=== PATIENT | female | born 1995 | race Caucasian/White ===

== ENCOUNTER 2017-02-07 11:45 | Emergency (ER) | payer OTHER ==
[2017-02-07 11:56] VITALS: RESP 16; TEMP 98.6
--- NOTE | 2017-02-07 13:47 | EDPHY ---
H & P Time Seen by Provider: 02/07/17 13:04 HPI/ROS: CHIEF COMPLAINT: Sinus pain, congestion, cough HISTORY OF PRESENT ILLNESS: 21-year-old female presents emergency department with nasal congestion, sinus pain over the last 1 week. The patient has a history of kidney stones. She has not been on antibiotics for 1 week. Denies any reported trauma. Has felt subjective fevers and chills. Only occasional cough. Her boyfriend is sick with similar symptoms. Denies chest pain or difficulty breathing. Denies abdominal pain or vomiting. No back pain. She has some right posterior neck pain which is chronic for her. REVIEW OF SYSTEMS: Constitutional: No fever, no chills. Eyes: No double or blurry vision. ENT: Nasal congestion, facial pain. No sore throat. Respiratory: Occasional cough, no shortness of breath. Cardiac: No chest pain. Gastrointestinal: No abdominal pain, vomiting or diarrhea. Genitourinary: No dysuria. Musculoskeletal: No neck or back pain. Skin: No rashes. Neurological: headache. Past Medical/Surgical History: Sinusitis Social History: [employer] student from [place] Smoking Status: Never smoked Physical Exam: General Appearance: Alert, no distress. Afebrile. Nontoxic appearing. Eyes: Pupils equal and round. Extraocular motions are all intact. ENT: Mouth: Mucous membranes moist. Tenderness with palpation over bilateral maxillary sinuses. Respiratory: No wheezing, rhonchi, or rales, lungs are clear to auscultation. Cardiovascular: Regular rate and rhythm. Gastrointestinal: Abdomen is soft and nontender, no masses, no rebound or guarding, bowel sounds normal. Neurological: Alert and oriented x 3, cranial nerves II through XII grossly intact Skin: Warm and dry, no rashes. Musculoskeletal: Nontender to palpate along the cervical, thoracic or lumbar spine. Neck is supple. Extremities: Full range of motion and no peripheral edema. Psychiatric: Patient is oriented X 3, there is no agitation. Constitutional: Initial Vital Signs Temperature (C) 37.0 C 02/07/17 11:53 Heart Rate 88 02/07/17 11:53 Respiratory Rate 16 02/07/17 11:53 Blood Pressure 125/76 H 02/07/17 11:53 O2 Sat (%) 98 02/07/17 11:53 O2 Delivery Mode Room Air Allergies/Adverse Reactions: No Known Allergies Allergy (Unverified 02/07/17 11:53) Home Medications: Medication Instructions Recorded Amoxicillin/Clavulanate Pot 875 mg PO BID #20 tab 02/07/17 [Augmentin 875 mg tab] Medical Decision Making ED Course/Re-evaluation: 21-year-old female presents to the emergency department with congestion and facial pain. Patient has history of sinusitis. She has not been on antibiotics for 1 year. Patient will be treated with Augmentin 875 mg twice daily for 10 days. She was also encouraged to continue guaifenesin. She was instructed to return if she developed fever, worsening pain or any other concerns. Differential Diagnosis: Including but not limited to sinusitis, influenza, viral upper respiratory infection, bronchitis, pneumonia Departure - Departure Disposition: Home, Routine, Self-Care Clinical Impression: Sinusitis Qualifiers: Sinusitis location: maxillary Chronicity: acute Recurrence: not specified as recurrent Qualified Code(s): J01.00 - Acute maxillary sinusitis, unspecified Condition: Good Instructions: Sinusitis (ED) Additional Instructions: Augmentin 875 mg twice daily for 10 days. Continue Mucinex as directed. Steam. Return to the emergency department if you develop fever, increasing pain , or if you feel worse in any way. Referrals: Kenneth Sampson MD [Medical Doctor] - 5-7 days, if not improved (ENT on-call) Prescriptions: Amoxicillin/Clavulanate Pot [Augmentin 875 mg tab] 875 mg PO BID #20 tab
[2017-02-07 13:58] VITALS: BP 122/78; PULSE 78; O2SAT 97
== END 2017-02-07 13:57 | disposition home or self-care (01) ==
DX: J01.00 Acute maxillary sinusitis, unspecified (principal)